=== PATIENT | male | born 1975 | race Caucasian/White ===

== ENCOUNTER 2021-01-06 06:02 | Inpatient (IN) ==
--- NOTE | 2020-12-20 10:13 | PAT Medication Instructions ---
Medication Instructions Date of Service December 20, 2020 Home Medications amlodipine 10 mg PO HS atenolol 50 mg PO HS atorvastatin 10 mg PO HS ibuprofen 800 mg PO TID PRN lisinopril 20 mg PO HS tramadol 50 mg PO TID PRN ASK your surgeon for instructions ibuprofen 800 mg PO TID PRN Take morning of surgery With a small sip of water, OTHERWISE NOTHING TO EAT OR DRINK AFTER MIDNIGHT: tramadol 50 mg PO TID PRN (okay to take up to 4 hours prior to surgery if needed) Take evening before surgery amlodipine 10 mg PO HS atenolol 50 mg PO HS atorvastatin 10 mg PO HS lisinopril 20 mg PO HS tramadol 50 mg PO TID PRN (if needed) Other Notes If you have any questions please call us at [phone] or [phone] or [phone] or [phone]
--- NOTE | 2020-12-23 10:14 | Anesthesiology Consultation ---
Date of Service December 23, 2020 Assessment & Plan (1) Encounter for pre-operative examination: - COVID screening: Per assessment on 12/23: Travel screen negative, no known COVID-19 positive contacts or current COVID-19 related symptoms. Patient was personally COVID positive 07/2020. Symptoms at time of change in taste, body aches x 3 days > resolved. Surgeon arranging preop COVID testing. Awaiting results. - Possible difficult intubation: due to anatomy Chart Review Chart Review: Acceptable Risk for Surgery and Patient seen in Pre Admission Testing Teaching & Discussion Pre-Anesthesia Teaching/Discussion Notes: Instructed NPO after midnight before surgery,except medications with 15 cc of water. Medication instructions provided according to the PAT guidelines. History Surgery Operation Date: 01/06/21 13:15 Proposed Procedures p C4-C5 Anterior Cervical Discectomy and Fusion, Spinal Cord Monitoring - Angelo Porter DO Height/Weight Height: 5 ft 9 in Weight: 138.3 kg Allergies Allergy/AdvReac Type Severity Reaction Status Date / Time fluorescein Allergy Eye Verified 12/23/20 10:42 watering x 1 month Medications Home Medications Medication Instructions Recorded Confirmed Last Taken amlodipine 10 mg PO HS 12/20/20 12/20/20 Unknown atenolol 50 mg PO HS 12/20/20 12/20/20 Unknown atorvastatin 10 mg PO HS 12/20/20 12/20/20 Unknown ibuprofen 800 mg PO TID PRN 12/20/20 12/20/20 Unknown lisinopril 20 mg PO HS 12/20/20 12/20/20 Unknown tramadol 50 mg PO TID PRN 12/20/20 12/20/20 Unknown Past Medical History Medical History Arthritis History of COVID-19 Dx 07/2020. Symptoms at time of change in taste, body aches x 3 days > now resolved Hyperlipidemia Hypertension Morbid obesity Exercise / Class Metabolic Activity II 4-5 Yardwork/Stairs/Walk up hill Past Family History Family History Grandfather (Paternal) No problems noted. Grandmother (Paternal) Family history of diabetes mellitus Past Surgical History Surgical History History of carpal tunnel release R/L History of colonoscopy History of elbow surgery R/L ulnar nerve surgery History of tonsillectomy Past Anesthesia History No Hx of Anesthesia Complications and No Family Hx of Anesthesia Complications (except mother (PONV)) History of PONV No Hx of PONV and No Hx of Motion Sickness STOP BANG Total 4 Social History Smoking Status: Never smoker tobacco type: smokeless tobacco Do You Dip or Chew Tobacco: Yes (1 can/day- advised none AM DOS) Hx Alcohol Use: Yes Alcohol type: beer alcohol intake frequency: holidays/special occasions only Hx Substance Use: No Review of Systems Patient denies chest pain, shortness of breath, dyspnea on exertion, fever, chills, cough, wheezing, palpitations. Physical Exam Vital Signs VITALS BP 150/84 P 75 TEMP 98.2 SP02 98%RA RESP 16 PHYSICAL Significantly decreased cervical extension range of motion. Full TMJ range of motion. TMD 4 finger breaths Mallampati Score 4 (small oral opening) Dentition: worn teeth, missing molar Lungs: clear throughout to auscultation Cardiac: regular rate and rhythm, no murmurs noted Spine: normal Carotid arteries: negative bruit Extremities: no edema Trimmed gonzales Thick neck Testing Laboratory Results 12/23/20 10:15 12/23/20 10:45 PT 10.3 Seconds (9.0-12.0) 12/23/20 10:15 INR 1.0 (0.9-1.1) 12/23/20 10:15 APTT 26.3 Seconds (21.0-31.0) 12/23/20 10:15 Urine Color Yellow 12/23/20 10:15 Urine Appearance Clear (Clear) 12/23/20 10:15 Urine pH 5.0 (4.5-7.5) 12/23/20 10:15 Ur Specific [place] 1.024 (1.000-1.030) 12/23/20 10:15 Urine Protein Negative (Negative) 12/23/20 10:15 Urine Glucose (UA) Negative (Negative) 12/23/20 10:15 Urine Ketones Negative (Negative) 12/23/20 10:15 Urine Nitrite Negative (Negative) 12/23/20 10:15 Ur Leukocyte Esterase Negative (Negative) 12/23/20 10:15 Blood Type A Negative 12/23/20 10:15 Antibody Screen NEGATIVE 12/23/20 10:15 Electrocardiogram Date: 12/23/20 Findings: + NSR @ (69) Chest X-Ray Date: 12/23/20 No acute cardiopulmonary findings. Borderline cardiomegaly.
[2020-12-23 11:08] LABS: Basophils # (auto) 0.03 K/uL (0-0.2); Basophils % (auto) 0.5 %; Eosinophils # (auto) 0.16 K/uL (0-0.5); Eosinophils % (auto) 2.7 %; Hematocrit (blood only) 41.4 % (42-52); Hemoglobin 14.9 g/dL (14.0-18.0); Immature Granulocytes # (auto) 0.01 K/uL (0.00-0.02); Immature Granulocytes % (auto) 0.2 %; Lymphocytes # (auto) 1.35 K/uL (1.2-3.4); Lymphocytes % (auto) 23.2 %; Mean Corpuscular Hemoglobin 31.3 pg (25-34); Mean Platelet Volume 10.6 fL (7.4-10.4); Monocytes # (auto) 0.49 K/uL (0.11-0.59); Monocytes % (auto) 8.4 %; Neutrophils # (auto) 3.79 K/uL (1.4-6.5); Platelet Count 149 K/uL (130-400); RDW Coefficient of Variation 13.4 % (11.5-14.5); RDW Standard Deviation 42.4 fL (36.4-46.3); Red Blood Count 4.76 M/uL (4.7-6.1); White Blood Count 5.83 K/uL (4.8-10.8)
--- NOTE | 2020-12-23 11:15 | XRay Report ---
XR chest Pre-admission PA/Lat CLINICAL HISTORY: Preoperative evaluation. COMPARISON STUDY: No previous studies for comparison. FINDINGS: Lung volumes are normal. Lungs are clear. There is no pneumothorax or pleural effusion. Car diac size is at the upper limits of normal. Mediastinal contours are normal. There is no evidence for pulmonary edema. IMPRESSION: No acute cardiopulmonary findings. Borderline cardiomegaly. ACT 112: Negative or not required by law. Electronically signed by: Evans Lim M.D. 12/23/2020 11:13 AM
[2020-12-23 11:18] LABS: Partial Thromboplastin Time 26.3 Seconds (21.0-31.0); Prothrombin Time 10.3 Seconds (9.0-12.0)
[2020-12-23 11:26] LABS: Appearance Urine Clear (Clear); Bilirubin Urine Negative (Negative); Blood Urine Negative (Negative); Color Urine Yellow; Glucose Urine UA Negative (Negative); Ketones Urine Negative (Negative); Leukocyte Esterase Urine Negative (Negative); Nitrite Urine Negative (Negative); Protein Urine Negative (Negative); Specific Gravity Urine 1.024 (1.000-1.030); Urobilinogen Urine Negative (Negative)
[2020-12-23 13:38] LABS: BUN Creatinine Ratio 14.7 (10-20); Calcium 9.4 mg/dl (8.5-10.1); Creatinine Clr Calc Pharmacy 146.5 ml/min; Est GFR (African American) 120.2; Est GFR (Non-African American) 103.7; Potassium 3.8 mmol/L (3.5-5.1)
--- NOTE | 2020-12-23 13:44 | Electrocardiogram Report ---
Test Reason : Blood Pressure : / mmHG Vent. Rate : 069 BPM Atrial Rate : 069 BPM P-R Int : 164 ms QRS Dur : 092 ms QT Int : 388 ms P-R-T Axes : 045 070 031 degrees QTc Int : 415 ms Normal sinus rhythm Normal ECG No previous ECGs available Confirmed by Rolando Alicea ([id number]) on 12/23/2020 1:43:57 PM Referred By: Angeol Porter Confirmed By:Rolando Alicea
[~2021-01-06 06:02] MED LIST: ACETAMINOPHEN 500 MG TAB PO SCH; CeleBREX 200 MG CAP PO SCH; GABAPENTIN 900 MG DOSE PO SCH; LR 15ML/HR IV SCH
[2021-01-06] MEDS ORDERED: NEOSTIGMINE METHYLSULFATE 1 MG/ML 10ML VIAL ONE (07:18)
[2021-01-06] MEDS ORDERED: GLYCOPYRROLATE 0.2 MG/ML VIAL ONE (07:18)
[2021-01-06] MEDS ORDERED: LIDOCAINE 2% 2 ML VIAL/AMP(20MG/ML) INFIL ONE (07:18)
[2021-01-06] MEDS ORDERED: PROPOFOL IV EMULSION 10 MG/ML 20 ML VIAL IV ONE (07:18)
[2021-01-06] MEDS ORDERED: fentaNYL citrate 100 MCG/2 ML VIAL ONE (07:18)
[2021-01-06] MEDS ORDERED: ONDANSETRON INJ 2 MG/ML 2 ML VIAL ONE (07:18)
[2021-01-06] MEDS ORDERED: MIDAZOLAM HCL 1 MG/ML 2ML VIAL ONE (07:18)
[2021-01-06] MEDS ORDERED: DEXAMETHASONE SOD INJ 4 MG/ML VIAL ONE (07:18)
[2021-01-06] MEDS ORDERED: PROPOFOL IV EMULSION 10 MG/ML 100 ML VIAL IV ONE (07:31)
[2021-01-06] MEDS ORDERED: SUGAMMADEX SODIUM 200 MG/2 ML VIAL IV ONE (07:31)
[2021-01-06] MEDS ORDERED: HYDROmorphone INJ 2 MG/ML SYR/VIAL ONE (07:34)
[2021-01-06] MEDS ORDERED: fentaNYL citrate 100 MCG/2 ML VIAL IV PRN (07:35)
[2021-01-06] MEDS ORDERED: ATROPINE SULFATE 0.1 MG/ML 10ML SYR IV PRN (07:35)
[2021-01-06] MEDS ORDERED: HYDROmorphone INJ 2 MG/ML SYR/VIAL IV PRN (07:35)
[2021-01-06] MEDS ORDERED: ePHEDrine sulfate 50 MG/ML AMP IV PRN (07:35)
[2021-01-06] MEDS ORDERED: ONDANSETRON INJ 2 MG/ML 2 ML VIAL IV PRN ×2 (07:35→09:22)
--- NOTE | 2021-01-06 07:35 | History & Physical Bridge Note ---
Date of Service January 06, 2021 History & Physical Bridge Note I have examined the patient, reviewed the History & Physical and in the interval since the performance of the History & Physical I have noted the following changes of clinical significance: no changes noted
--- NOTE | 2021-01-06 07:37 | History & Physical Report ---
Date of Service January 06, 2021 Assessment & Plan Admission and Anticipated Discharge Date Admission Date: C4-C5 anterior cervical discectomy and fusion History of Present Illness Chief Complaint: Neck and arm pain Primary Care Provider: Nils Whitfield Capp, This is a 44-year-old male presents with chronic persistent neck and arm symptoms after failing course of nonoperative care is here for surgical invention. Allergies Allergy/AdvReac Type Severity Reaction Status Date / Time fluorescein Allergy Eye Verified 01/06/21 06:23 watering x 1 month Home Medications Medication Instructions Recorded Confirmed Type amlodipine 10 mg PO HS 12/20/20 01/06/21 History atenolol 50 mg PO HS 12/20/20 01/06/21 History atorvastatin 10 mg PO HS 12/20/20 01/06/21 History ibuprofen 800 mg PO TID PRN 12/20/20 01/06/21 History lisinopril 20 mg PO HS 12/20/20 01/06/21 History tramadol 50 mg PO TID PRN 12/20/20 01/06/21 History Past Med/Surg History Medical History Arthritis History of COVID-19 Dx 07/2020. Symptoms at time of change in taste, body aches x 3 days > now resolved Hyperlipidemia Hypertension Morbid obesity Surgical History History of carpal tunnel release R/L History of colonoscopy History of elbow surgery R/L ulnar nerve surgery History of tonsillectomy Family History Grandfather (Paternal) No problems noted. Grandmother (Paternal) Family history of diabetes mellitus Social History (Updated 12/20/20 @ 09:35 by Lillian Lang RN) Smoking Status: Never smoker Second Hand Exposure: Yes (MOTHER SMOKED); Do You Dip or Chew Tobacco: Yes (1 can/day- advised none AM DOS); Hx Alcohol Use: Yes Alcohol type: beer Hx Substance Use: No Preferred Language: Tanzanian Communication Ability: Effective Claim Inspector Required: No Beliefs That Will Affect Care: None Current Living Situation: Significant Other current occupational status: employed current occupation: MAKES FURNITURE FOR [employer] Other Information That Helps Us Care for You: No Feels Safe at Home: Yes Safety Concerns: Feels Safe At This Time Assistive Devices: Glasses Physical Exam Physical Exam: Patient is alert and oriented Heart regular in rhythm Lungs clear to auscultation Results & Data ([facility]) Vital Signs (Past 12 Hours) Vital Signs Temp Pulse Resp BP Pulse Ox 01/06/21 06:26 37.3 C 65 18 175/84 H 98
[2021-01-06] MEDS ORDERED: FLOSEAL HEMOSTATIC MATRIX 10ML TOP ONE (09:06)
--- NOTE | 2021-01-06 09:14 | Operative Report ---
Post Operative Report Pre & Post Diagnosis Operation Date: 01/06/21 07:45 Pre-Op Diagnosis: Spinal Stenosis Cervical Region Post-Op Diagnosis: Spinal Stenosis Cervical Region I identified the patient and participated in the time-out.: Yes Procedure Operation Date: 01/06/21 07:45 Actual Procedures #1 anterior cervical discectomy with bilateral foraminotomies C4-C5. #2 intracervical arthrodesis C4-C5. #3 placement of 8 mm spiral cage filled I factor C4-C5. #4 application of tong plate and screws across C4-C5. Surgeon Angelo Porter, DO Corduroy Cutting Supervisor Geovany Hudson Estimated Blood Loss 10 Findings See Below The patient is 5 foot 9 weighing over 139 kg with a BMI in excess of 45. Patient's body habitus did contribute to significant technical difficulty from positioning to exposure. This at least 50% increase to the operative time. Specimens None Indications This is a 45-year-old male who presents with current persistent cervicalgia and is here for the above-mentioned procedure. Description of Procedure Patient was met with identified informed consent obtained. Patient was then taken to the operative suite underwent ablation placed in supine position Sridhar table with head Crystal golf club head former. All bony prominences well-padded eyes inspected to ensure no external pressure placed upon. This point the anterior cervical spine was prepped and draped in a sterile fashion. With the assistance of fluoroscopy identified the C4-C5 displacement transverse incision was placed along the right anterior aspect of the cervical spinal lines region. Sharp dissection with the assistance of bipolar electrocautery was performed down to and exposing the anterior cervical spine at this region. Self-retaining retractors placed. Then performed a complete discectomy at C4-5 out to the uncovertebral's bilaterally. This included removal of all posterior annular fibers and bilateral foraminotomies to address all spinal stenosis. Endplates were then burred to subcortically bone and an 8 mm spiral cage filled with I factor tapped in position. A 5 complete screws was then applied with the assistance of fluoroscopy. The incision was then copiously irrigated explored to ensure no damage to surrounding structures remaining bleeding. 10 round LOVE drain inserted. The incision was then closed with 2 Vicryl in the fascia and a 4 Monocryl for final skin closure. Steri-Strip sterile dressings placed. Patient waken taken to PACU stable condition. Please note spinal cord monitoring was utilized at the procedure no changes noted. Lastly Geovany Hudson was present at the entire surgery involved the patient positioning complex portions of the surgery and final skin closure. I attest to the content of the Intraoperative Record and any orders documented therein. Any exceptions are noted below.
[2021-01-06] MEDS ORDERED: ONDANSETRON 4 MG OD TAB PO PRN (09:22)
[2021-01-06] MEDS ORDERED: ACETAMINOPHEN 500 MG TAB PO PRN (09:22)
[2021-01-06] MEDS ORDERED: oxyCODONE HCL IR 5 MG TAB (IMMEDIATE RELEASE) PO PRN ×2 (09:22)
[2021-01-06] MEDS ORDERED: METOCLOPRAMIDE HCL INJ 5 MG/ML 2 ML VIAL IV PRN (09:22)
[2021-01-06] MEDS ORDERED: traMADol HCL 50 MG TABLET PO PRN (09:22)
[2021-01-06] MEDS ORDERED: HYDROmorphone INJ 0.5 MG/0.5 ML SYR IV PRN ×2 (09:22)
[2021-01-06] MEDS ORDERED: PROMETHAZINE HCL 12.5 MG in SODIUM CHLORIDE 0.9% 50 ML IV PRN (09:22)
[2021-01-06] MEDS ORDERED: NALOXONE HCL 0.4 MG/1 ML VIAL/CARP IV PRN (09:22)
--- NOTE | 2021-01-06 10:02 | Fluoroscopy Report ---
FL cervical 2-3V CLINICAL HISTORY: ACDF C4-C5 COMPARISON STUDY: None FLUOROSCOPY TIME: 7 seconds. NUMBER OF FLUOROSCOPIC IMAGES: 2 FINDINGS: 2 intraoperative fluoroscopic spot images demonstrate postsurgical changes of a C4-5 discec padmini and anterior fusion. The endotracheal tube is visualized. There is an overlying surgical drain w ithin the neck. IMPRESSION: Intraoperative fluoroscopic spot images demonstrating postsurgical changes of the C4-5 a nterior cervical discectomy and fusion. ACT 112: Negative or not required by law. Electronically signed by: Cisco Sanchez M.D. 01/06/2021 10:01 AM
[2021-01-06] MEDS ORDERED: RACEPINEPHRINE 2.25% NEBU SOLN 0.5 ML VIAL INH PRN (10:59)
[2021-01-06] MEDS ORDERED: dexAMETHasone 8 MG in SYRINGE 0 ML IV PRN (10:59)
[2021-01-06] MEDS ORDERED: DO NOT ADMINISTER PNEUMOCOCCAL VACCINE PRN (10:59)
[2021-01-06] MEDS ORDERED: ACETAMINOPHEN 1,000 MG/100 ML VIAL IV PRN (10:59)
[2021-01-06] MEDS ORDERED: DO NOT ADMINISTER FLU VACCINE PRN (10:59)
--- NOTE | 2021-01-06 11:00 | Anesthesiology Progress Note ---
Date of Service January 06, 2021 Anesthesia Post Procedure Vital Signs Vital Signs: Temp Pulse Pulse Resp BP BP Pulse Ox 01/06/21 10:40 70 20 119/73 94 01/06/21 10:30 36.5 C 72 22 133/79 94 01/06/21 10:20 71 20 138/84 95 01/06/21 10:10 68 18 129/74 94 01/06/21 10:00 73 20 130/70 95 01/06/21 09:50 71 18 131/77 99 01/06/21 09:40 70 13 128/84 98 01/06/21 09:32 36.0 C L 75 12 136/78 99 01/06/21 06:26 37.3 C 65 18 175/84 H 98 Pain Intensity Neck: Pain Intensity: 2 Bilateral Shoulder: Pain Intensity: 4 Transfer of Care Handoff Completed per policy Notes Mental Status: alert / awake / arousable and participated in evaluation Patient Amnestic to Procedure: Yes Nausea / Vomiting: adequately controlled Pain: adequately controlled Airway Patency, RR, SpO2: stable & adequate BP & HR: stable & adequate Hydration State: stable & adequate Anesthetic Complications: no major complications apparent and Pt Satisfied with anesthetic care
--- NOTE | 2021-01-06 13:56 | Consultation ---
Date of Consultation January 06, 2021 Assessment & Plan (1) S/P spinal surgery: Post op day# 0 S/P ACDF C3-C4 by Dr Porter EBL#10ml -pain management per ortho -wound management per ortho -PT/OT as appropriate -DVT prophylaxis per ortho -monitor H&H for acute blood loss anemia; pre-op Hgb: 14.9 (2) Hypertension: Stable currently at 146/86 -Continue amlodipine, atenolol, lisinopril with holding parameters (3) Hyperlipidemia: -Continue atorvastatin (4) Morbid obesity: BMI: 45 -Life style modifications recommended DVT Prophylaxis -SCDs per ortho Disposition per primary service Follows with Dr Nils Calhoun - [facility] for routine care Pt was seen and care coordinated with Dr Caraballo. See addendum Supervising Physician Co-Signing Physician Notes 45-year-old man with history of hypertension, hyperlipidemia obesity who had ACDF today by Dr. Porter for cervical spinal stenosis Patient seen and examined postop Reports no pain at surgical site at this time. Reports feeling much better with respect to neck and arm pain Denied any other symptoms Physical exam notable for obesity, neck collar with drain in situ Pain control Check CBC in AM Resume home antihypertensives Other plans as detailed by Theodora Carvajal PA-C History of Present Illness Requesting Physician: Dr Porter Reason for Consultation: Post op medical management Attending Physician: Angelo Porter, History of Present Illness Pt is 45 y/o M with PMH HTN, HLD, obesity seen in medical consultation s/p ACDF today by Dr Porter. Post op pt reports doing well. Reports neck pain and shoulder pain is decreased from pre-op. Has chronic paresthesias fingers and denies any change. Drinking fluids well without difficulty. States has tried to urinate but feels having trouble initiating stream at bedside and feels will urinate better in restroom as he states "have a shy bladder". Denies fever/chills, diaphoresis, N/V/D, PEREZ, dizziness, CP, SOB, cough, sore throat, choking, abdominal pain, extremity weakness, extremity edema, rashes. Allergies Allergy/AdvReac Type Severity Reaction Status Date / Time fluorescein Allergy Eye Verified 01/06/21 06:23 watering x 1 month Home Medications Medication Instructions Recorded Confirmed Type amlodipine 10 mg PO HS 12/20/20 01/06/21 History atenolol 50 mg PO HS 12/20/20 01/06/21 History atorvastatin 10 mg PO HS 12/20/20 01/06/21 History ibuprofen 800 mg PO TID PRN 12/20/20 01/06/21 History lisinopril 20 mg PO HS 12/20/20 01/06/21 History tramadol 50 mg PO TID PRN 12/20/20 01/06/21 History Patient History Medical History (Updated 01/06/21 @ 14:04 by Theodora Carvajal PA-C) Arthritis History of COVID-19 Dx 07/2020. Symptoms at time of change in taste, body aches x 3 days > now resolved Hyperlipidemia Hypertension Morbid obesity Surgical History (Updated 01/06/21 @ 14:04 by Theodora Carvajal PA-C) History of carpal tunnel release R/L History of colonoscopy History of elbow surgery R/L ulnar nerve surgery History of tonsillectomy Family History Grandfather (Paternal) No problems noted. 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[employer] Other Information That Helps Us Care for You: No Feels Safe at Home: Yes Safety Concerns: Feels Safe At This Time Assistive Devices: Glasses Review of Systems Review of Systems: All systems reviewed & are unremarkable except as noted in HPI & below Physical Exam Physical Exam: General: no distress, obese Head: normocephalic, atraumatic Eyes: conjunctiva non-injected, anicteric ENT: normal inspection external ears, nose, mucous membranes moist Neck: C-collar in place, trachea midline, anterior neck with surgical dressing in place, LOVE drain in place with scant amount of serosanguineous drainage Lungs: clear, no respiratory distress, no wheezing/rhonchi/rales CV: RRR, no murmur, no pretibial edema Abd: normal BS, soft, non-tender Ext: no cyanosis, no calf tenderness, polishing machine operator strength equal bilaterally, pedal pushes and pulls intact bilaterally Neuro: A&O x 3, no focal deficits noted, normal affect Skin: warm, dry Results & Data ([facility]) Vital Signs (Past 12 Hours) Vital Signs Temp Pulse Pulse Pulse Resp BP BP 01/06/21 13:11 36.4 C L 80 18 146/86 H 01/06/21 11:48 75 18 151/88 H 01/06/21 11:44 75 18 01/06/21 11:20 73 18 144/84 H 01/06/21 10:50 36.5 C 70 16 147/78 H 01/06/21 10:40 70 20 119/73 01/06/21 10:30 36.5 C 72 22 133/79 01/06/21 10:20 71 20 138/84 01/06/21 10:10 68 18 129/74 01/06/21 10:00 73 20 130/70 01/06/21 09:50 71 18 131/77 01/06/21 09:40 70 13 128/84 01/06/21 09:32 36.0 C L 75 12 136/78 01/06/21 06:26 37.3 C 65 18 175/84 H Pulse Ox Pulse Ox 01/06/21 13:11 96 01/06/21 11:48 92 01/06/21 11:44 94 01/06/21 11:20 95 01/06/21 10:50 94 94 01/06/21 10:40 94 01/06/21 10:30 94 01/06/21 10:20 95 01/06/21 10:10 94 01/06/21 10:00 95 01/06/21 09:50 99 01/06/21 09:40 98 01/06/21 09:32 99 01/06/21 06:26 98
[2021-01-06] MEDS: ACETAMINOPHEN 1,000 MG/100 ML VIAL IV PRN ×2 (14:13→22:33)
[2021-01-06] MEDS: ceFAZolin 2000MG 2,000 MG/15 ML SYR IV SCH (15:51)
[2021-01-06] MEDS: traMADol HCL 50 MG TABLET PO PRN (18:06)
[2021-01-06] MEDS ORDERED: ATORVASTATIN 10 MG TAB PO SCH (21:00)
[2021-01-06] MEDS ORDERED: amLODIPine BESYLATE 5 MG TAB PO SCH (21:00)
[2021-01-06] MEDS ORDERED: lisinopril 20 MG TAB PO SCH (21:00)
[2021-01-06] MEDS ORDERED: ATENOLOL 50 MG TABLET PO SCH (21:00)
[2021-01-06] MEDS ORDERED: Nursing to Pharmacy Communication SCH (21:15)
[2021-01-06] MEDS ORDERED: COUGH DROP (SUGAR FREE) LOZ 24 LOZ/1 BOX BUCCAL PRN (21:16)
[2021-01-07] MEDS: ceFAZolin 2000MG 2,000 MG/15 ML SYR IV SCH (00:11)
[2021-01-07] MEDS: traMADol HCL 50 MG TABLET PO PRN (04:05)
[2021-01-07 05:59] LABS: Hematocrit (blood only) 39.1 % (42-52); Hemoglobin 13.8 g/dL (14.0-18.0); Mean Corpuscular Hgb Conc 35.3 g/dL (32-36); Mean Corpuscular Volume 90.7 fL (80-100); Mean Platelet Volume 10.5 fL (7.4-10.4); Platelet Count 187 K/uL (130-400); RDW Standard Deviation 45.9 fL (36.4-46.3); Red Blood Count 4.31 M/uL (4.7-6.1)
[2021-01-07] MEDS: ACETAMINOPHEN 1,000 MG/100 ML VIAL IV PRN (08:29)
--- NOTE | 2021-01-07 09:49 | Hospitalist Progress Note ---
Date of Service January 07, 2021 Assessment & Plan (1) S/P spinal surgery: Post op day#1 S/P ACDF C3-C4 by Dr Porter EBL#10ml Pain controlled Surgical management per Dr Porter (2) Hypertension: Continue amlodipine, atenolol, lisinopril (3) Hyperlipidemia: Continue atorvastatin (4) Morbid obesity: BMI: 45 Reinforced Lifestyle modifications education Patient stable for discharge from medical perspective Admission and Anticipated Discharge Date Admission Date: January 06, 2021 Subjective 45-year-old man with history of hypertension, hyperlipidemia obesity who had ACDF today by Dr. Porter for cervical spinal stenosis POD 1 Reports pain is well controlled Denied all other symptoms on review of systems Physical Exam Constitutional: + well hydrated and + obese; no acute distress Eyes: PERRL, conjunctivae normal, anicteric sclerae ENMT: external ear and nose normal, oropharynx normal Neck collar in place with drain in situ Respiratory: normal respiratory effort, lungs clear to auscultation Cardiovascular: RRR, no murmur, no edema Gastrointestinal (Abdomen): normal bowel sounds, soft, nontender, no hepatosplenomegaly Musculoskeletal: no cyanosis or clubbing, extremities motor strength 5/5 Neurologic: PERRL, EOMI, accommodation nl, no face palsy, no dysarthria Psychiatric: A+Ox3, euthymic affect Results & Data Results & Data ([facility]) Vital Signs (Past 12 Hours) Vital Signs Temp Pulse Resp BP Pulse Ox 01/07/21 08:22 36.8 C 69 18 146/85 H 96 01/07/21 07:12 64 16 96 01/07/21 06:06 36.5 C 64 16 150/77 H 99 01/07/21 04:00 36.6 C 69 18 153/83 H 95 01/07/21 03:00 75 20 93 01/07/21 01:59 36.7 C 81 16 161/75 H 93 01/07/21 00:01 36.7 C 89 18 149/77 H 94 01/06/21 23:00 105 H 18 94 01/06/21 22:01 36.4 C L 106 H 18 175/75 H 94 Laboratory Results Laboratory Results - last 24 hr 01/06/21 01/06/21 01/07/21 12:14 18:14 00:28 WBC RBC Hgb Hct MCV MCH MCHC RDW Std Deviation RDW Coeff of Lin Plt Count MPV POC Glucose 117 H 156 H 161 H 01/07/21 01/07/21 05:19 06:48 WBC 9.10 RBC 4.31 L Hgb 13.8 L Hct 39.1 L MCV 90.7 MCH 32.0 MCHC 35.3 RDW Std Deviation 45.9 RDW Coeff of Lin 14.0 Plt Count 187 MPV 10.5 H POC Glucose 133 H
--- NOTE | 2021-01-07 10:21 | Discharge Summary ---
Date of Service January 07, 2021 Admission HPI Per Admitting Provider This is a 44-year-old male presents with chronic persistent neck and arm symptoms after failing course of nonoperative care is here for surgical invention. Principal Diagnosis Cervical spinal stenosis with radiculopathy Discharge Data Allergies Allergy/AdvReac Type Severity Reaction Status Date / Time fluorescein Allergy Eye Verified 01/06/21 06:23 watering x 1 month Consultations 01/06/21 10:59 Consult Hospitalist Routine Procedures Performed Operation Date: 01/06/21 07:45 Actual Procedures p C4-C5 Anterior Cervical Discectomy and Fusion, Spinal Cord Monitoring - Angelo Porter DO Ordered Studies 01/06/21 07:45 FL cervical 2-3V Routine Hospital Course (1) S/P spinal surgery: Patient underwent anterior cervical discectomy fusion tolerated as well second orthopedic for postoperative. Postop day 1 he was up and ambulating swallowing well excellent strength testing LOVE drain decreasing appropriately. Subsequent discharge home. Discharge orders instructions were on the chart for further review. Total Time Total Time Spent Total Time Spent (In Minutes): 20 minutes Discharge Plan Discharge Items Patient Disposition: Home - Self-Care Reason For Visit: Spinal Stenosis Cervical Region Discharge Diagnosis: Cervical spinal stenosis with radiculopathy Activity: As commented below Non-emergency contact: Primary Care Provider Call non-emergency contact if: you have any medication questions Follow-up/Referrals: Nils Calhoun DO [Primary Care Provider] - Diet: Regular Addtl Attending Provider Instructions: ACTIVITY RECOMMENDATIONS: SELF CARE INSTRUCTIONS AFTER CERVICAL FUSIONS 1. No smoking. Smoking drastically decreases the chance of a solid fusion. 2. No bending, lifting more than 5 pounds, or twisting (roll like a log when turning in bed). 3. You may shower 3 days after surgery. Thoroughly dry wound. Do not soak in the tub. 4. Cervical collar: Must be worn at all times including sleeping. You may remove the brace only to bath, eat and if you are sitting in a recliner. 5. Please walk as much as you can for exercise. Gradually increase the distance that you walk as your endurance increases. SPECIAL CARE INSTRUCTIONS: VERY IMPORTANT TO READ AND REVIEW A. Do not take any anti-inflammatory medications (i.e. Indocin, Advil, Aspirin, Naprosyn, Aleve, Motrin, etc.) as these may inhibit the chance of a solid fusion. Tylenol is okay to take. B. Your surgical incision has been closed with a cosmetic suture under the skin that will dissolve in about 6 weeks. In 14 days, you can use a pair of clean scissors and cut the suture that is left outside of the skin at the ends of your incision. C. Complications are uncommon, but please contact us if you have any signs or symptoms of: 1. wound infection (fever higher than 102.5 degrees F, redness, separation of wound, drainage, or increasing pain from the incision) 2. blood clots in legs (pain, swelling, redness and warmth in legs) 3. urinary tract infection (fever higher than 102.5 degrees, burning upon urination or increased frequency of urination) 4. nerve problems (inability to walk on your toes or heels, numbness, loss of bowel or bladder control) 5. any other symptoms that concern you. D. Please call the office at if you have any concerns or questions about your operation or recovery. MANAGING PAIN AFTER SPINAL SURGERY 1. Narcotic medication is intended for short-term use and will be provided for surgical pain. Surgical pain usually lasts for a period of 4-6 weeks. Narcotic medication includes Percocet, Vicodin, Darvocet, Tylenol #3 or Lortab. 2. Longer-term pain is more appropriately treated with non-narcotic medication such as Tylenol ES. 3. Muscle spasm is not appropriately treated with narcotics. Muscle relaxers such as Soma, Flexeril or Skelaxin can be used along with Tylenol ES. 4. Remember that we all live with some "aches and pains". This is not unusual or uncommon after an injury or as we get older. 5. We will provide appropriate medication within the normal guidelines of their prescribed use. We will also be very cautious and aware of potential abuse and extended duration of patients' medication needs. 6. Please allow 2-3 days to process refills. Prescriptions will not be mailed but must be picked up at the office. FOLLOW UP VISIT: Keep your scheduled follow-up appointment. Any questions, please call the office at . Pending Studies at Discharge: No Stand-Alone Forms: [employer] [facility], Smoking Cessation Medications and DC Order Prescriptions: New oxycodone 5 mg tablet 5 mg PO Q6H PRN (Reason: pain, severe) Qty: 20 RF: 0 tramadol 50 mg tablet 50 mg PO Q6H PRN (Reason: pain, moderate) Qty: 20 RF: 0 Continued atorvastatin 10 mg Tablet 10 mg PO HS RF: 0 ibuprofen 800 mg Tablet 800 mg PO TID PRN (Reason: Pain) RF: 0 lisinopril 20 mg Tablet 20 mg PO HS RF: 0 tramadol 50 mg Tablet 50 mg PO TID PRN (Reason: Pain) RF: 0 amlodipine 10 mg Tablet 10 mg PO HS RF: 0 atenolol 50 mg Tablet 50 mg PO HS RF: 0 Discharge Orders: Discharge Order (Routine); Ordered 01/07/21 Ordered By: Angelo Porter Admission Data Admit Date/Time: 01/06/21 09:41 Attending Provider: Angelo Porter Admit Provider: Angelo Porter Primary Care Provider: Nils Calhoun Other Providers: Deidra Rahman ; Lianet Caraballo I.
== END 2021-01-07 12:20 | disposition home or self-care (01) | DRG 519 ==
LOC: ASU 06:02 → 3E 09:41